=== PATIENT | male | born 1965 | race Caucasian/White ===

== ENCOUNTER 2019-02-07 16:17 | Emergency (ER) | payer OTHER ==
[~2019-02-07] VITALS: Ht 172.7 cm; Wt 88.5 kg
[2019-02-07] MEDS ORDERED: ALTACE10 MG (16:23)
[2019-02-07] MEDS ORDERED: ZIAC 10/6.25 MG1 TAB (16:23)
[2019-02-07] MEDS ORDERED: ALTACE2.5 MG (16:24)
== END 2019-02-07 18:01 | disposition home or self-care (01) ==
LOC: ER 16:17
DX: S60.511A Abrasion of right hand, initial encounter (principal); S80.211A Abrasion, right knee, initial encounter; W18.39XA Other fall on same level, initial encounter; Y93.89 Activity, other specified; Y92.488 Other paved roadways as the place of occurrence of the external cause; Y99.8 Other external cause status

== ENCOUNTER 2021-06-06 09:00 | Outpatient (CLI) | payer OTHER ==
[~2021-06-06 09:00] MED LIST: ALTACE10 MG; ALTACE2.5 MG; ZIAC 10/6.25 MG1 TAB
== END 2021-06-06 09:30 | disposition home or self-care (01) ==
LOC: PPH VACUNA 09:00
PROVIDERS: ATTEND Emergency Medicine Pediatric Emergency Medicine
DX: Z23 Encounter for immunization (principal)